=== PATIENT | male | born 1990 | race Caucasian/White ===

== ENCOUNTER 2019-02-03 04:40 | Emergency (ER) | payer BC ==
[2019-02-03] MEDS ORDERED: Loperamide 2 MG Cap PO STA (05:09)
[2019-02-03] MEDS ORDERED: Ondansetron 4 MG Tab.DIS PO ONE (05:09)
--- NOTE | 2019-02-03 05:17 | EDM.PDOC ---
ED HPI GENERAL MEDICAL PROBLEM - General Chief Complaint: Gastrointestinal Problem Stated Complaint: POSS FOOD POISON Time Seen by Provider: 02/03/19 04:59 Source of Information: Reports: Patient, RN Notes Reviewed History Limitations: Reports: No Limitations - History of Present Illness INITIAL COMMENTS - FREE TEXT/NARRATIVE: The patient states that he has had nausea with dry heaves, watery diarrhea, abdominal cramps, and a headache for the past 3 days, after eating at a and W this past 01/30/2019. He states that the food did not taste bad, but it is unusual for his diet. No family members similarly ill. No recent antibiotics. The patient was recently in [place]. The patient states that he has taken some Tylenol, ibuprofen, and Excedrin, but he has not taking any antidiarrheals. The patient states that he has a PCP, but he does not recall his name. Headache Pain Score (Numeric/FACES): 5 - Related Data Allergies Allergy/AdvReac Type Severity Reaction Status Date / Time No Known Allergies Allergy Verified 02/03/19 04:52 Home Meds: Home Meds Ondansetron [Zofran ODT] 1 tab PO Q8H PRN #10 tab.dis 02/03/19 [Rx] Past Medical History Musculoskeletal History: Reports: Fracture (right hand) - Past Surgical History HEENT Surgical History: Reports: Oral Surgery (wisdom teeth extraction) Musculoskeletal Surgical History: Reports: Other (See Below) (Right hand surgery x 3) Social & Family History - Tobacco Use Smoking Status *Q: Never Smoker - Caffeine Use Caffeine Use: Reports: Coffee, Energy Drinks - Alcohol Use Alcohol Use History: No - Recreational Drug Use Recreational Drug Use: No - Living Situation & Occupation Living situation: Reports: , with Spouse, with Family (2 kids) Occupation: Employed ([employer]) ED ROS GENERAL - Review of Systems Review Of Systems: ROS reveals no pertinent complaints other than HPI. ED EXAM, GI/ABD - Physical Exam Exam: See Below Exam Limited By: No Limitations General Appearance: Alert, WD/WN, No Apparent Distress Eyes: Bilateral: Normal Appearance, EOMI Ears: Normal External Exam, Hearing Grossly Normal, Normal TMs Nose: Normal Inspection Throat/Mouth: Normal Inspection, Normal Lips, Normal Voice, No Airway Compromise , Other (Oral mucosa moist) Head: Atraumatic, Normocephalic Neck: Normal Inspection, Full Range of Motion Respiratory/Chest: No Respiratory Distress, Lungs Clear, Normal Breath Sounds, No Accessory Muscle Use Cardiovascular: Normal Peripheral Pulses, Regular Rate, Rhythm, No Edema, No Gallop, No JVD, No Murmur, No Rub GI/Abdominal Exam: Normal Bowel Sounds, Soft, Non-Tender, No Organomegaly, No Distention, No Abnormal Bruit, No Mass (Male) Exam: Deferred Rectal (Males) Exam: Deferred Back Exam: Normal Inspection, Full Range of Motion, NT Extremities: Normal Inspection, Normal Range of Motion, No Pedal Edema, Normal Capillary Refill Neurological: Alert, Oriented, Normal Cognition, No Motor/Sensory Deficits Psychiatric: Normal Affect Skin Exam: Warm, Dry, Intact, Normal Color, No Rash Course - Vital Signs Last Recorded V/S: Last Vital Signs Temp 36.1 C 02/03/19 04:48 Pulse 75 02/03/19 04:48 Resp 20 02/03/19 04:48 BP 134/91 H 02/03/19 04:48 Pulse Ox 97 02/03/19 04:48 - Orders/Labs/Meds Meds: Medications Discontinued Medications Generic Name Dose Route Start Last Admin Trade Name Freq PRN Reason Stop Dose Admin Loperamide HCl 4 mg 02/03/19 05:09 02/03/19 06:00 Imodium PO 02/03/19 05:10 4 mg ONETIME STA Administration Ondansetron HCl 4 mg 02/03/19 05:09 02/03/19 05:15 Zofran Odt PO 02/03/19 05:10 4 mg ONETIME ONE Administration - Re-Assessments/Exams Free Text/Narrative Re-Assessment/Exam: 02/03/19 05:10 The patient appears to have mild gastroenteritis, likely viral. Clinically, he is not dehydrated. I don't feel that we need blood work drawn. Instead, I am recommending Zofran ODT and oral loperamide. We will have him drink some fluids , and if he can keep them down for about 20 minutes, he should be safe to discharge home. 02/03/19 05:59 The patient has been able to tolerate oral fluids. I will discharge him home with a prescription for Zofran ODT. Loperamide is available [id number]. Departure - Departure Time of Disposition: 06:00 Disposition: Home, Self-Care 01 Condition: Good Clinical Impression: Viral gastroenteritis - Discharge Information *PRESCRIPTION DRUG MONITORING PROGRAM REVIEWED*: Not Applicable *COPY OF PRESCRIPTION DRUG MONITORING REPORT IN PATIENT [place]: Not Applicable Prescriptions: Ondansetron [Zofran ODT] 1 tab PO Q8H PRN #10 tab.dis PRN Reason: Nausea/Vomiting Instructions: Viral Gastroenteritis, Adult Referrals: PCP,None [Primary Care Provider] - Forms: ED Department Discharge Additional Instructions: You were seen in the emergency room for 3 days of nausea, dry heaves, watery diarrhea, and abdominal cramps. Based on your history and physical examination, you are suffering from gastroenteritis, most likely viral in etiology. As discussed, there are no medicines to get rid of the virus - it will have to run its course - but there are medicines to help with her symptoms. You have been started on the anti-nausea medicine Zofran. A prescription for Zofran has been sent to the [facility] located in the [employer] [facility] store. Dissolve one tablet of Zofran on your tongue up to every 8 hours, as needed for nausea/vomiting. You have also been started on the anti-diarrheal medicine loperamide (Imodium). Take one tablet of loperamide after each loose bowel movement, to a total of 8 tablets (16 mg) within a 24-hour period. Stay adequately hydrated. Gatorade or Powerade are best. As long as you have diarrhea, you should probably avoid juice or milk. If any other problems, please do not hesitate to return to the ER.
== END 2019-02-03 06:05 | disposition home or self-care (01) ==
LOC: JD.ED 04:40
DX: A08.4 Viral intestinal infection, unspecified (principal); Z98.890 Other specified postprocedural states
CPT/HCPCS: 99283; A9270